=== PATIENT | male | born 1980 | race Caucasian/White ===

== ENCOUNTER → 2016-12-24 | Outpatient (CLI) | payer OTHER | LOC: FIMAGING 15:57 | PROVIDERS: ATTEND Internal Medicine Pulmonary Disease | DX: R06.00 Dyspnea, unspecified (principal); R91.1 Solitary pulmonary nodule ==

== ENCOUNTER 2017-03-07 09:01 | Emergency (ER) | payer OTHER ==
[2017-03-07] MEDS ORDERED: fentaNYL 100 MCG/2 ML INJ IVP ONE (09:18)
--- NOTE | 2017-03-07 09:23 | EDPHY ---
H & P Stated Complaint: L shoulder injury Time Seen by Provider: 03/07/17 09:05 HPI/ROS: CHIEF COMPLAINT: Left shoulder injury HISTORY OF PRESENT ILLNESS: The patient presents to the ED complaining of left shoulder pain and immobility after [place] The patient denies any additional trauma. He specifically denies headache, neck pain , numbness, weakness, back pain or difficulty breathing. The patient has no prior history of shoulder dislocation. The patient denies significant past medical history. The patient has moderate pain with attempted movement. REVIEW OF SYSTEMS: A comprehensive 10 point review of systems is otherwise negative aside from elements mentioned in the history of present illness. Source: Patient Exam Limitations: No limitations - Personal History Current Tetanus/Diphtheria Vaccine: Unsure Current Tetanus Diphtheria and Acellular Pertussis (TDAP): Unsure - Medical/Surgical History Hx Asthma: No Hx Chronic Respiratory Disease: No Hx Diabetes: No Hx Cardiac Disease: No Hx Renal Disease: No Hx Cirrhosis: No Hx Alcoholism: No Hx HIV/AIDS: No Hx Splenectomy or Spleen Trauma: No - Social History Smoking Status: Never smoked - Physical Exam Exam: General Appearance: Alert, no distress Head: Atraumatic Eyes: Pupils equal, round, reactive ENT, Mouth: No hemotympanum, no oral trauma Neck: Nontender, trachea midline Respiratory: No chest wall tender, subcutaneous air, lungs clear bilaterally Cardiovascular: Regular rate and rhythm Abdomen: Abdomen is soft and nontender, pelvis stable Skin: No lacerations, No abrasion Back: No midline T/L/S pain Extremities: Empty glenoid appreciated in the left shoulder. Neurological: A&Ox3, normal motor function, normal sensory exam Constitutional: Initial Vital Signs Temperature (C) 36.4 C 03/07/17 09:10 Heart Rate 78 03/07/17 09:10 Respiratory Rate 16 03/07/17 09:10 Blood Pressure 122/97 H 03/07/17 09:10 O2 Sat (%) 99 03/07/17 09:10 O2 Delivery Mode Room Air Allergies/Adverse Reactions: No Known Allergies Allergy (Unverified 03/07/17 09:11) Medical Decision Making - Diagnostics Imaging Results: Imaging Impressions Shoulder X-Ray 03/07/17 09:23 Impression: 1. Anterior dislocation left humeral head. Shoulder X-Ray 03/07/17 09:58 Impression: Reduction of left shoulder dislocation. Left shoulder x-ray: Images reviewed by myself, glenohumeral dislocation present Procedures: Procedure: Dislocation reduction. Indication: Dislocation The shoulder was reduced in the usual fashion without complications. The patient received IV fentanyl prior to the reduction. He was placed on pulse oximetry. Reduction was accomplished using scapular rotation. The patient was placed in a prone position. Post reduction the patient's neurovascular exam is normal. Post reduction x-ray demonstrates reduction of the joint to the anatomic position. The procedure was performed by myself. ED Course/Re-evaluation: The patient presents the emergency department with a left shoulder dislocation. The patient had an IV established. He received 75 mcg of fentanyl. His shoulder was reduced without complication by myself. The patient was noted to be neurologically intact following the procedure. The patient has been placed in a sling. He will be advised to follow up as needed with our on-call orthopedic surgeon. Differential Diagnosis: Differential diagnosis considered includes fracture, sprain, dislocation - Data Points Medications Given: Discontinued Medications Fentanyl (Sublimaze) 75 mcg IVP EDNOW ONE Stop: 03/07/17 09:19 Last Admin: 03/07/17 10:04 Dose: 75 mcg Departure - Departure Disposition: Home, Routine, Self-Care Clinical Impression: Shoulder dislocation Condition: Good Instructions: Shoulder Dislocation (ED) Additional Instructions: 1. Take Ibuprofen or Motrin 600 mg by mouth three times a day. 2. Wear sling as needed for comfort. 3. Please follow up with the orthopedic surgeon you have been referred to for recheck in the next week. Referrals: Marciano Bryant MD [Primary Care Provider] - As per Instructions Amos Castaneda MD [Medical Doctor] - As per Instructions
[2017-03-07 17:42] VITALS: BP 134/78; PULSE 76; RESP 14; TEMP 98.2; O2SAT 98
== END 2017-03-07 11:38 | disposition home or self-care (01) ==
PROC: 0RSKXZZ Reposition Left Shoulder Joint, External Approach (ICD-10-PCS; principal; 2017-03-07)
DX: S43.005A Unspecified dislocation of left shoulder joint, initial encounter (principal); W18.39XA Other fall on same level, initial encounter; Y92.89 Other specified places as the place of occurrence of the external cause; Y93.16 Activity, rowing, canoeing, kayaking, rafting and tubing
CPT/HCPCS: 96374; A4565; J3010; L3980

== ENCOUNTER → 2017-03-10 | Outpatient (CLI) | payer OTHER ==
[~2017-03-10] MED LIST: IOPAMIDOL (ISOVUE-300) 100 ML BTL ONE
== END ==
LOC: FIMAGING 12:48
PROVIDERS: ATTEND Internal Medicine Pulmonary Disease
DX: R91.1 Solitary pulmonary nodule (principal); J98.11 Atelectasis
CPT/HCPCS: Q9967

== ENCOUNTER → 2018-05-25 | Outpatient (CLI) | payer OTHER | LOC: FIMAGING 13:44 | PROVIDERS: ATTEND Internal Medicine Pulmonary Disease | DX: R91.1 Solitary pulmonary nodule (principal); G47.33 Obstructive sleep apnea (adult) (pediatric) ==